=== PATIENT | female | born 1985 | race Caucasian/White ===

== ENCOUNTER 2018-11-28 17:11 | Emergency (ER) | payer BC ==
[2018-11-28 20:10] LABS: ABS Basophils 0 10^3/ul (0-0.2); ABS Eosinophils 0.1 10^3/ul (0-0.6); ABS Lymphocytes 1.4 10^3/ul (1.0-4.8); ABS Monocytes 0.6 10^3/ul (0-0.8); ABS Neutrophils 3.8 10^3/ul (1.5-7.7); ABS Nucleated RBC 0 10^3/ul; Eosinophil % 0.9 %; Hematocrit 43 % (35-47); Hemoglobin 14.4 g/dl (12.0-16.0); Mean Corpuscular HGB Conc 34 g/dl (31-36); Mean Corpuscular Hemoglobin 31 pg (27-31); Mean Corpuscular Volume 91 fL (80-97); Mean Platelet Volume 10.2 fL (7.4-10.4); Nucleated Red Blood Cells % 0; Platelet Count 179 10^3/ul (150-450); Red Blood Count 4.65 10^6/ul (4.00-5.40); Red Cell Distribution Width 12 % (10.5-15); White Blood Count 5.8 10^3/ul (3.5-10.8)
[2018-11-28 20:19] LABS: Activated Partial Thrombo Time 29.9 seconds (26.0-36.3); INR 1.02 (0.77-1.02)
[2018-11-28 20:26] LABS: Albumin 4.9 g/dL (3.2-5.2); Albumin/Globulin Ratio 1.5 (1-3); BUN/Creatinine Ratio 16.9 (8-20); Calcium 10.2 mg/dL (8.6-10.3); EGFR African American 105.8 (>60); EGFR Non-African American 87.4 (>60); Globulin 3.2 g/dL (2-4); Potassium 4.1 mmol/L (3.5-5.0); Total Bilirubin 0.5 mg/dL (0.2-1.0); Total Protein 8.1 g/dL (6.4-8.9)
[2018-11-28 20:33] LABS: HCG Pregnancy 0.63 mIU/mL
--- NOTE | 2018-11-28 22:02 | ED ---
GI/ HPI - HPI Summary HPI Summary: Pt is 32 y/o F who presents to ED c/o blood in stool. One day ago she noted a little blood in her stool, but wasnt too concerned with it. Today during her bowel movement, she noticed a large amount of blood in the toilet. Pt describes the blood as maroon in color and notes the stool did not look like diarrhea. She only felt a little bit of pain when passing the bowel, similar to when you are constipated. The blood worried her though and led her to visit urgent care. A digital rectal exam was performed at [facility] and pt reports it was positive for blood. She also notes tailbone pain for past 2 months. Since the earlier bowel movement, she has noticed some blood when she urinates. Pt denies abdominal pain, fever, recent travel, or abdominal surgeries. PMHx of IBS. - History of Current Complaint Chief Complaint: EDGIBleed Time Seen by Provider: 11/28/18 21:48 Stated Complaint: BLOOD IN STOOL/PAIN Hx Obtained From: Patient Onset/Duration: Started Hours Ago, Still Present Current Severity: Mild Vaginal Bleeding Description: Brownish-Red Pain Intensity: 0 Location of Pain: None Associated Signs and Symptoms: Positive: Blood w/Stool. Negative: Fever, Abdominal Pain Aggravating Factor(s): Nothing Alleviating Factor(s): Nothing - Allergy/Home Medications Allergies/Adverse Reactions: Allergies Allergy/AdvReac Type Severity Reaction Status Date / Time Sulfa (Sulfonamide Allergy Vomiting Verified 11/28/18 17:15 Antibiotics) Home Medications: Home Medications NK [No Home Medications Reported] 11/28/18 [History Confirmed 11/28/18] PMH/Surg Hx/FS Hx/Imm Hx Endocrine/Hematology History: Denies: Hx Anticoagulant Therapy GI History: Reports: Hx Irritable Bowel Infectious Disease History: No Infectious Disease History: Denies: Traveled Outside the [place] in Last 30 Days - Family History Known Family History: Negative: Blood Disorder - Social History Alcohol Use: None Substance Use Type: Reports: None Smoking Status (MU): Never Smoked Tobacco Review of Systems Negative: Fever Positive: Other - Blood in stool. Negative: Abdominal Pain, Diarrhea All Other Systems Reviewed And Are Negative: Yes Physical Exam - Summary Physical Exam Summary: Appearance: Well-appearing, Well-nourished, lying in bed comfortably Skin: Warm, dry, no obvious rash Eyes: sclera anicteric, no conjunctival pallor ENT: mucous membranes moist, pharynx appears normal Neck: Supple, nontender Respiratory: Clear to auscultation, no signs of respiratory distress Cardiovascular: Normal S1, S2. No murmurs. Normal distal pulses in tibial and radial bilaterally. Abdomen: Soft, nontender, normal active bowel sounds present Musculoskeletal: Normal, Strength/ROM Intact Neurological: A&Ox3, awake and alert, mentation is normal, speech is fluent and appropriate Psychiatric: affect is normal, does not appear anxious or depressed Triage Information Reviewed: Yes Vital Signs On Initial Exam: Initial Vitals Temp Pulse Resp BP Pulse Ox 97.7 F 69 17 120/77 99 11/28/18 17:11 11/28/18 17:11 11/28/18 17:11 11/28/18 17:11 11/28/18 17:11 Vital Signs Reviewed: Yes Diagnostics - Vital Signs Vital Signs Temp Pulse Resp BP Pulse Ox 11/28/18 19:10 99.4 F 71 16 103/85 99 11/28/18 17:11 97.7 F 69 17 120/77 99 - Laboratory Lab Results: Lab Results 11/28/18 11/28/18 11/28/18 Range/Units 19:55 19:55 19:55 WBC 5.8 (3.5-10.8) 10^3/ul RBC 4.65 (4.00-5.40) 10^6/ul Hgb 14.4 (12.0-16.0) g/dl Hct 43 (35-47) % MCV 91 (80-97) fL MCH 31 (27-31) pg MCHC 34 (31-36) g/dl RDW 12 (10.5-15) % Plt Count 179 (150-450) 10^3/ul MPV 10.2 (7.4-10.4) fL Neut % (Auto) 64.4 % Lymph % (Auto) 24.0 % [place] % (Auto) 10.2 % Eos % (Auto) 0.9 % Baso % (Auto) 0.5 % Absolute Neuts (auto) 3.8 (1.5-7.7) 10^3/ul Absolute Lymphs (auto) 1.4 (1.0-4.8) 10^3/ul Absolute Monos (auto) 0.6 (0-0.8) 10^3/ul Absolute Eos (auto) 0.1 (0-0.6) 10^3/ul Absolute Basos (auto) 0 (0-0.2) 10^3/ul Absolute Nucleated RBC 0 10^3/ul Nucleated RBC % 0 INR (Anticoag Therapy) 1.02 (0.77-1.02) APTT 29.9 (26.0-36.3) seconds Sodium 139 (135-145) mmol/L Potassium 4.1 (3.5-5.0) mmol/L Chloride 102 (101-111) mmol/L Carbon Dioxide 28 (22-32) mmol/L Anion Gap 9 (2-11) mmol/L BUN 13 (6-24) mg/dL Creatinine 0.77 (0.51-0.95) mg/dL Est GFR ( Amer) 105.8 (>60) Est GFR (Non-Af Amer) 87.4 (>60) BUN/Creatinine Ratio 16.9 (8-20) Glucose 96 (70-100) mg/dL Calcium 10.2 (8.6-10.3) mg/dL Total Bilirubin 0.50 (0.2-1.0) mg/dL AST 21 (13-39) U/L ALT 20 (7-52) U/L Alkaline Phosphatase 71 (34-104) U/L Total Protein 8.1 (6.4-8.9) g/dL Albumin 4.9 (3.2-5.2) g/dL Globulin 3.2 (2-4) g/dL Albumin/Globulin Ratio 1.5 (1-3) Beta HCG, Quant 0.63 mIU/mL Blood Type Antibody Screen 11/28/18 Range/Units 19:55 WBC (3.5-10.8) 10^3/ul RBC (4.00-5.40) 10^6/ul Hgb (12.0-16.0) g/dl Hct (35-47) % MCV (80-97) fL MCH (27-31) pg MCHC (31-36) g/dl RDW (10.5-15) % Plt Count (150-450) 10^3/ul MPV (7.4-10.4) fL Neut % (Auto) % Lymph % (Auto) % [place] % (Auto) % Eos % (Auto) % Baso % (Auto) % Absolute Neuts (auto) (1.5-7.7) 10^3/ul Absolute Lymphs (auto) (1.0-4.8) 10^3/ul Absolute Monos (auto) (0-0.8) 10^3/ul Absolute Eos (auto) (0-0.6) 10^3/ul Absolute Basos (auto) (0-0.2) 10^3/ul Absolute Nucleated RBC 10^3/ul Nucleated RBC % INR (Anticoag Therapy) (0.77-1.02) APTT (26.0-36.3) seconds Sodium (135-145) mmol/L Potassium (3.5-5.0) mmol/L Chloride (101-111) mmol/L Carbon Dioxide (22-32) mmol/L Anion Gap (2-11) mmol/L BUN (6-24) mg/dL Creatinine (0.51-0.95) mg/dL Est GFR ( Amer) (>60) Est GFR (Non-Af Amer) (>60) BUN/Creatinine Ratio (8-20) Glucose (70-100) mg/dL Calcium (8.6-10.3) mg/dL Total Bilirubin (0.2-1.0) mg/dL AST (13-39) U/L ALT (7-52) U/L Alkaline Phosphatase (34-104) U/L Total Protein (6.4-8.9) g/dL Albumin (3.2-5.2) g/dL Globulin (2-4) g/dL Albumin/Globulin Ratio (1-3) Beta HCG, Quant mIU/mL Blood Type O Positive Antibody Screen Negative Result Diagrams: 11/28/18 19:55 11/28/18 19:55 Lab Statement: Any lab studies that have been ordered have been reviewed, and results considered in the medical decision making process. GIGU Course/Dx - Course Course Of Treatment: 2 from. In the office Pt is 32 y/o F who presents to ED c/ o blood in stool. Today during her bowel movement, she noticed a large amount of blood in the toilet. Pt describes the blood as maroon in color and notes the stool did not look like diarrhea. A digital rectal exam was performed at [facility] and pt reports it was positive for blood. Since the earlier bowel movement, she has noticed small amount of blood when she urinates. Pt denies abdominal pain, fever, recent travel, or abdominal surgeries. PMHx of IBS. Physical exam was normal as was the blood work. Pt is not anemic. Since the heavy bleeding experienced earlier today seems to have stopped and pt denies abdominal pain, she will be discharged home with a diagnosis of lower GI bleeding. She was told to follow up with a food production manager and pt is agreeable with this plan. - Diagnoses Provider Diagnoses: Lower GI bleeding Discharge - Sign-Out/Discharge Documenting (check all that apply): Patient Departure - Discharge - Discharge Plan Condition: Good Disposition: HOME Patient Education Materials: Gastrointestinal Bleeding (ED) Referrals: Francheska Anderson MD [Medical Doctor] - 2 Days Additional Instructions: The bleeding that you experienced earlier today appears to have stopped. Your blood work looks good, you are not anemic. Nonetheless, I do think you should see a food production manager, either at [facility] or here in [place] (I have given you contact info for our local group),who may want to do a colonoscopy to see if they can identify the source of the bleeding. This can be done electively as long as the bleeding is not recurrent. If you have occasional isolated relatively small amounts of bleeding that would not necessarily prompt another ED visit, but certainly if it becomes persistent and recurrent, or you get other symptoms such as pelvic pain or fever, we should see you back here. - Billing Disposition and Condition Condition: GOOD Disposition: Home - Attestation Statements Document Initiated by Jose: Yes Documenting Scribe: Kylie Collado Provider For Whom Jose is Documenting (Include Credential): Dr. Bernard Lozano MD Scribe Attestation: I, Kylie Collado scribed for Dr. Bernard Lozano MD on 11/29/18 at 0040. Scribe Documentation Reviewed: Yes Provider Attestation: The documentation as recorded by the Kylie kay accurately reflects the service I personally performed and the decisions made by me, Dr. Bernard Lozano MD Status of Scribe Document: Viewed
[2018-11-28 22:28] VITALS: BP 123/64
== END 2018-11-28 22:28 | disposition home or self-care (01) ==
LOC: ED 17:11
DX: K92.2 Gastrointestinal hemorrhage, unspecified (principal); Z88.2 Allergy status to sulfonamides
CPT/HCPCS: 36415; 80053; 84702; 85025; 85610; 85730; 86850; 86900; 86901; 99282

== ENCOUNTER 2018-12-01 12:06 | Emergency (ER) | payer BC ==
[2018-12-01] MEDS ORDERED: NS 0.9% 1000 ML** 1,000 ML IV ONE (14:19)
--- NOTE | 2018-12-01 14:21 | ED ---
GI/ HPI - HPI Summary HPI Summary: This pt is a 32 y/o female presenting to [facility] c/o rectal bleeding with bowel movements intermittently for the past 1 week. Pt states that she has had 3 episodes of bleeding with bowel movements, one on 11/26, the next on 11/28, and one today. She states there was a lot more blood on 11/28 and decided to go to Urgent Care where she was told she had positive guaiac test and was referred to the ED. Pt was seen in the ED on 11/28 and she was discharged home with follow up from GI. Today pt describes a quarter to half tea spoon of red blood with bowel movement seen on toilet paper, not on toilet. Associated symptoms of lower back pain and tailbone pain (for the past 2 months). Denies abd pain, vomiting, hematuria, chest pain, SOB. Denies taking NSAIDs on a regular basis, she did take it once this past week. She has not seen GI yet. Pt is currently on medications for bronchitis. - History of Current Complaint Chief Complaint: EDGIBleed Time Seen by Provider: 12/01/18 14:08 Stated Complaint: POSSIBLE GI BLEED Hx Obtained From: Patient Onset/Duration: Started Days Ago, Still Present Timing: Intermittent, Lasting Days Current Severity: Mild Vaginal Bleeding Description: Bright Red Pain Intensity: 2 Location of Pain: Other - lower back Associated Signs and Symptoms: Positive: Back Pain - lower, Bright Red Blood w/ Stool, Blood w/Stool, Other: - POS: tailbone pain. Negative: Nausea, Vomiting, Fever, Hematuria, Chills, Abdominal Pain, Chest Pain - Allergy/Home Medications Allergies/Adverse Reactions: Allergies Allergy/AdvReac Type Severity Reaction Status Date / Time Sulfa (Sulfonamide Allergy Vomiting Verified 11/28/18 17:15 Antibiotics) PMH/Surg Hx/FS Hx/Imm Hx Endocrine/Hematology History: Denies: Hx Anticoagulant Therapy, Hx Diabetes Cardiovascular History: Denies: Hx Hypertension GI History: Reports: Hx Irritable Bowel Infectious Disease History: No Infectious Disease History: Denies: Traveled Outside the [place] in Last 30 Days - Family History Known Family History: Negative: Blood Disorder - Social History Alcohol Use: Rare Substance Use Type: Reports: None Smoking Status (MU): Never Smoked Tobacco Review of Systems Negative: Fever, Chills Negative: Chest Pain Negative: Shortness Of Breath Gastrointestinal: Other - POS: bleeding with bowel movements, tailbone pain, lower back pain Negative: Abdominal Pain, Vomiting Negative: hematuria All Other Systems Reviewed And Are Negative: Yes Physical Exam - Summary Physical Exam Summary: Appearance: Well appearing, no pain distress Skin: warm, dry, reflects adequate perfusion Head/face: normal Eyes: EOMI, JERO ENT: normal Neck: supple, nontender Respiratory: CTA, breath sounds present Cardiovascular: RRR, pulses symmetrical Abdomen: nontender, soft Rectal Exam: Ebony Cintron RN, 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 Normal rectal exam. No blood. Musculoskeletal: normal, strength/ROM intact Neuro: normal, sensory motor intact, A&Ox3 Triage Information Reviewed: Yes Vital Signs On Initial Exam: Initial Vitals Temp Pulse Resp BP Pulse Ox 99.5 F 63 18 130/93 99 12/01/18 12:15 12/01/18 12:15 12/01/18 12:15 12/01/18 12:15 12/01/18 12:15 Vital Signs Reviewed: Yes Diagnostics - Vital Signs Vital Signs Temp Pulse Resp BP Pulse Ox 12/01/18 12:15 99.5 F 63 18 130/93 99 - Laboratory Result Diagrams: 12/01/18 14:30 12/01/18 14:30 Lab Statement: Any lab studies that have been ordered have been reviewed, and results considered in the medical decision making process. Re-Evaluation - Re-Evaluation First Eval Re-Evaluation Time: 15:23 Comment: I reviewed lab results with pt and she is aware Dr. Ma is coming to see her. Second Eval Re-Evaluation Time: 15:49 Comment: NATHAN Silva, at bedside with pt. GIGU Course/Dx - Course Assessment/Plan: Pt is a 32 y/o female who presents to the ED c/o 3 episodes of rectal bleeding with bowel movements for the past 1 week, including one today. Pt was seen in Urgent Care and ED on 11/28, but she has not followed up with GI yet. Blood work, stool occult obtained. Stool occult blood is negative. I discussed pt care with NATHAN Silva, who will come see pt in the ED. Dr. Ma evaluated the pt in the ED and recommends to discharge the pt home. Pt is instructed to return to the ED for any worsening or new symptoms. - Diagnoses Differential Diagnoses - Female: Other - gi bleeding/rectal bleeding Provider Diagnoses: Rectal bleeding, GI bleed - Physician Notifications Discussed Care Of Patient With: Nam Ma Time Discussed With Above Provider: 15:19 Instructed by Provider To: Other - I discussed pt care with NATHAN Silva, who will come see pt in the ED. Discharge - Sign-Out/Discharge Documenting (check all that apply): Patient Departure - Discharge home - Discharge Plan Condition: Stable Disposition: HOME Patient Education Materials: Gastrointestinal Bleeding (ED), Rectal Bleeding ( ED) Referrals: Tali Rich MD [Primary Care Provider] - 3 Days Additional Instructions: RETURN TO THE ED FOR ANY WORSENING OR NEW SYMPTOMS. - Billing Disposition and Condition Condition: STABLE Disposition: Home - Attestation Statements Document Initiated by Jose: Yes Documenting Scribe: Simran Mccord Provider For Whom Jose is Documenting (Include Credential): Eliud Pena MD Scribe Attestation: ISimran scribed for Eliud Pena MD on 12/01/18 at 1905. Scribe Documentation Reviewed: Yes Provider Attestation: The documentation as recorded by the Simran kay accurately reflects the service I personally performed and the decisions made by , Eliud Pena MD Status of Scrroger Document: Viewed
[2018-12-01 14:40] LABS: ABS Basophils 0 10^3/ul (0-0.2); ABS Eosinophils 0 10^3/ul (0-0.6); ABS Lymphocytes 1.7 10^3/ul (1.0-4.8); ABS Monocytes 0.6 10^3/ul (0-0.8); ABS Neutrophils 2.7 10^3/ul (1.5-7.7); ABS Nucleated RBC 0 10^3/ul; Eosinophil % 0.5 %; Hematocrit 40 % (35-47); Hemoglobin 13.6 g/dl (12.0-16.0); Lymphocyte % 34.3 %; Mean Corpuscular HGB Conc 34 g/dl (31-36); Mean Corpuscular Hemoglobin 31 pg (27-31); Mean Corpuscular Volume 91 fL (80-97); Mean Platelet Volume 9.8 fL (7.4-10.4); Nucleated Red Blood Cells % 0.1; Platelet Count 163 10^3/ul (150-450); Red Blood Count 4.43 10^6/ul (4.00-5.40); Red Cell Distribution Width 12 % (10.5-15)
[2018-12-01 14:58] LABS: ALT 19 U/L (7-52); AST 25 U/L (13-39); Albumin 4.5 g/dL (3.2-5.2); Albumin/Globulin Ratio 1.7 (1-3); Alkaline Phosphatase 54 U/L (34-104); Anion Gap 7 mmol/L (2-11); BUN/Creatinine Ratio 23.1 (8-20); Blood Urea Nitrogen 18 mg/dL (6-24); CO2 Carbon Dioxide 25 mmol/L (22-32); Calcium 9.4 mg/dL (8.6-10.3); Chloride 105 mmol/L (101-111); EGFR African American 104.2 (>60); EGFR Non-African American 86.1 (>60); Globulin 2.7 g/dL (2-4); Glucose 88 mg/dL (70-100); Potassium 3.3 mmol/L (3.5-5.0); Sodium 137 mmol/L (135-145); Total Protein 7.2 g/dL (6.4-8.9)
[2018-12-01 15:06] LABS: Activated Partial Thrombo Time 26.1 seconds (26.0-36.3); INR 1.1 (0.77-1.02)
[2018-12-01 16:42] VITALS: BP 123/75
--- NOTE | 2018-12-01 19:47 | CONS ---
GASTROENTEROLOGY CONSULT: DATE OF CONSULT: - EMERGENCY DEPT CONSULTING PHYSICIAN: Eliud Pena., emergency room. REASON FOR CONSULTATION: Dark red rectal bleeding exclusively with bowel movements (on her usual schedule) beginning 5 days ago. HISTORY: This 32-year-old woman currently under some stress from a recent marital separation, says that she first saw blood 5 days ago, 11/26/18. She passed a small amount of blood with the stool that she thought was a little more difficult to pass, but was not overtly hard. She did not mention specific pain or extreme straining. She then had no stool on 11/27/18. On 11/28/18 with the stool, she passed "a lot of blood." It was maroon. She came to the emergency room after being seen at [facility]. Blood count was normal with hemoglobin 14.4, hematocrit 43, MCV 91, platelets 179. She was pronounced stable for discharge and to follow up with GI and has called several places. She had no stool at all the last 2 days. That can happen with her underlying irritable bowel. Today, she had a movement that was a little bit softer than average and saw a little bit of blood again. She describes vaguely a little bit of discomfort with that. She has been having some midline sacral area pain for couple of months that had her exploring the DDx online with reading and she is very concerned about colon cancer and asked whether a CEA could be done to explore that possibility. She has not been taking any aspirin, Advil, Aleve, etc. There is no family history of gastrointestinal problems. Her platelets were a little bit low during her , but not since then. She states that she does not have any proclivity to nosebleeds or prolonged bleeding with cuts. There is no family history of colitis. PAST MEDICAL HISTORY: 1. Irritable bowel syndrome - with stress, she tends to have diarrhea and/or then constipation. It is ever since grade school. 2. Sacral pain - see above. SOCIAL HISTORY: She is from her recently. Her son, 4-1/2 years old, attends school. She works for [employer] [address] and also for [employer]. There is some stress with uncertainty about her medical insurance status in the coming weeks. 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 REVIEW OF SYSTEMS: No history of headaches, migraines, sinusitis, recent antibiotics, NSAIDs, chronic pulmonary conditions, cardiac conditions, fever or recent fractures. She did have recent cyst surgery at the pelvic brim. She tends to see whoever is available at the [facility] for various complaints, but does not identify a consistent practitioner. EXAM: She is a slender, healthy-appearing young woman, in no distress. Her emergency room nurse, Ebony attended. Her skin is normal. She has no adenopathy. Her lungs are clear. Heart sounds are normal. The abdomen is symmetric, soft, and nontender. There is no hepatosplenomegaly. The exam done to the pelvic brim level was unremarkable and no tenderness. Perianal inspection is normal and symmetric. Rectal shows no pain or guarding spasm. There is no specimen. Extremities are unremarkable. DIAGNOSTIC STUDIES/LAB DATA: - hemoglobin today 13.6, hematocrit 40, MCV 91. BUN 18, creatinine 0.78, albumin 4.5. LFTs are normal, and lipase less than 10 IMPRESSION: Recurring painless low volume rectal bleeding without any obvious precipitating factors for hemorrhoidal disease. Still hemorrhoids lead the list with juvenile polyps certainly possible and much less likely would be an adenomatous polyp or malignancy. She is really focussed on the latter 2 possibilities. Proctitis is possible but not extensive IBD or Meckel's. Given the lack of a characteristic benign perianal bleeding history, colonoscopy is certainly reasonable and can be offered. 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 For the moment, there is no need for admission. [id number]/[facility] #: [id number] [facility]AN[facility]aya
== END 2018-12-01 16:41 | disposition home or self-care (01) ==
LOC: ED 12:06
DX: K92.2 Gastrointestinal hemorrhage, unspecified (principal); K62.5 Hemorrhage of anus and rectum; M54.5 Low back pain; Z88.2 Allergy status to sulfonamides
CPT/HCPCS: 36415; 80053; 82270; 83690; 85025; 85610; 85730; 96360; 99283